=== PATIENT | male | born 1980 | race Caucasian/White ===

== ENCOUNTER 2018-05-05 14:43 | Emergency (ER) | payer BC ==
[2018-05-05] MEDS: ACETAMINOPHEN 325 MG TAB PO (17:05)
== END 2018-05-05 18:10 | disposition home or self-care (01) ==
LOC: FTE 18:10
DX: S69.92XA Unspecified injury of left wrist, hand and finger(s), initial encounter (principal); W20.8XXA Other cause of strike by thrown, projected or falling object, initial encounter; Y92.9 Unspecified place or not applicable
CPT/HCPCS: 73130; 73130-LT; 99283-25